=== PATIENT | female | born 1960 | race Caucasian/White ===

== ENCOUNTER 2017-08-09 21:21 | Inpatient (IN) | payer OTHER ==
[~2017-08-09] VITALS: Ht 170.2 cm; Wt 71.2 kg
[2017-08-09 21:31] VITALS: BP 123/71; PULSE 94; RESP 16; TEMP 100.5; O2SAT 97
[2017-08-09 22:19] LABS: BACTERIA, URINE OCC /hpf; BILIRUBIN, URINE NEG (NEG); BLOOD, URINE LARGE (NEG); GLUCOSE,URINE NEG (NEG); KETONE, URINE NEG (NEG); NITRITE,URINE NEG (NEG); PH, URINE 7.5 (5.0-8.5); URINE LEUKOCYTE ESTERASE MOD (NEG)
[2017-08-09 22:22] LABS: URINE COLOR LIGHT-RED (YELLW/STRAW)
[2017-08-09] MEDS ORDERED: SODIUM CHLOR 0.9% 1000 ML INJ 800 ML IV ONE (22:32)
[2017-08-09] MEDS ORDERED: SODIUM CHLOR 0.9% 1000 ML INJ 1,000 ML IV ONE (22:32)
--- NOTE | 2017-08-09 22:39 | PD ---
HPI Chief Complaint: Flank/Kidney Pain Time Seen by Provider: 22:28 Travel History International Travel<30 days: No Contact w/Intl Traveler<30days: No Traveled to known affect area: No History of Present Illness HPI 57-year-old female here for evaluation of severe left flank pain, fever, dysuria , and hematuria. On 08/06/17 the patient underwent cystoscopy with lithotripsy and left ureteral stent placement for [address] Delgadillo. Patient reports having continuous pain since then. She was seen at [facility] the day after and was discharged home from the emergency department after being treated for her pain. She has not been on any antibiotics. Pain is severe, left-sided, sharp, radiates to her left lower abdomen. She has also had nausea and vomiting. Pain is constant, slightly worse with movements. She is unable to keep any of the medications that were prescribed to her for pain and nausea down as she vomits them up shortly after taking them. [facility] Social History Tobacco Use: Yes Allergies-Medications (Allergen,Severity, Reaction): Coded Allergies: No Known Allergies (Unverified , 08/09/17) Reported Meds & Prescriptions Reported Meds & Active Scripts Active Review of Systems Except as stated in HPI: all other systems reviewed are Neg Physical Exam Narrative GENERAL: Well-developed, well-nourished, no apparent distress. SKIN: Focused skin assessment warm/dry. No rash. HEAD: Atraumatic. Normocephalic. EYES: Pupils equal and round. No scleral icterus. No injection or drainage. ENT: No nasal bleeding or discharge. Mucous membranes pink and moist. NECK: Trachea midline. No JVD. CARDIOVASCULAR: Regular rate and rhythm. RESPIRATORY: No accessory muscle use. Clear to auscultation. Breath sounds equal bilaterally. GASTROINTESTINAL: Abdomen soft, nondistended. Mild left lower quadrant tenderness without peritoneal signs. Normal bowel sounds. No hernias. MUSCULOSKELETAL: No obvious deformities. No clubbing. No cyanosis. No edema. Moderate left CVA tenderness. No right CVA tenderness. NEUROLOGICAL: Awake and alert. No obvious cranial nerve deficits. Motor grossly within normal limits. Normal speech. PSYCHIATRIC: Appropriate mood and affect; insight and judgment normal. Data Data Last Documented VS Vital Signs Date Time Temp Pulse Resp B/P (MAP) Pulse Ox O2 Delivery O2 Flow Rate FiO2 08/09/17 21:31 100.5 94 16 123/71 (88) 97 Room Air Orders Orders Urinalysis - C+S If Indicated (08/09/17 21:45) Urine Culture (08/09/17 21:45) Sepsis Workup Initiated (08/09/17 ) Complete Blood Count With Diff (08/09/17 22:32) Comprehensive Metabolic Panel (08/09/17 22:32) Prothrombin Time / Inr (Pt) (08/09/17 22:32) Act Partial Throm Time (Ptt) (08/09/17 22:32) Lactic Acid Sepsis Protocol (08/09/17 22:32) Blood Culture (08/09/17 22:32) Ecg Monitoring (08/09/17 22:32) Iv Access Insert/Monitor (08/09/17 22:32) Oximetry (08/09/17 22:32) Ct Abd/Pel W/O Iv Contrast (08/09/17 22:32) Sodium Chlor 0.9% 1000 Ml Inj (Ns 1000 M (08/09/17 22:32) Sodium Chlor 0.9% 1000 Ml Inj (Ns 1000 M (08/09/17 22:32) Creatine Kinase (Cpk) (08/09/17 22:32) Morphine Inj (Morphine Inj) (08/09/17 22:45) Ondansetron Inj (Zofran Inj) (08/09/17 22:45) Chest, Single Ap (08/09/17 ) Ceftriaxone Inj (Rocephin Inj) (08/09/17 22:45) Hydromorphone Pf Inj (Dilaudid Pf Inj) (08/09/17 23:45) Acetaminophen (Tylenol) (08/09/17 23:45) Sodium Chlor 0.9% 1000 Ml Inj (Ns 1000 M (08/10/17 00:00) Admit Order (Ed Use Only) (08/09/17 23:54) Labs Laboratory Tests Test 08/09/17 21:45 08/09/17 22:45 Urine Color LIGHT-RED Urine Turbidity CLEAR Urine pH 7.5 Urine Specific [employer] 1.005 Urine Protein 100 mg/dL Urine Glucose (UA) NEG mg/dL Urine Ketones NEG mg/dL Urine Occult Blood LARGE Urine Nitrite NEG Urine Bilirubin NEG Urine Urobilinogen LESS THAN 2.0 MG/DL Urine Leukocyte Esterase MOD Urine RBC /hpf Urine WBC 28 /hpf Urine Bacteria OCC /hpf Microscopic Urinalysis Comment CULTURE INDICATED White Blood Count 15.0 TH/MM3 Red Blood Count 3.69 MIL/MM3 Hemoglobin 12.2 GM/DL Hematocrit 35.6 % Mean Corpuscular Volume 96.5 FL Mean Corpuscular Hemoglobin 33.1 PG Mean Corpuscular Hemoglobin Concent 34.3 % Red Cell Distribution Width 12.4 % Platelet Count 255 TH/MM3 Mean Platelet Volume 8.1 FL Neutrophils (%) (Auto) 74.2 % Lymphocytes (%) (Auto) 14.4 % Monocytes (%) (Auto) 10.9 % Eosinophils (%) (Auto) 0.1 % Basophils (%) (Auto) 0.4 % Neutrophils # (Auto) 11.1 TH/MM3 Lymphocytes # (Auto) 2.2 TH/MM3 Monocytes # (Auto) 1.6 TH/MM3 Eosinophils # (Auto) 0.0 TH/MM3 Basophils # (Auto) 0.1 TH/MM3 CBC Comment DIFF FINAL Differential Comment Prothrombin Time 10.9 SEC Prothromb Time International Ratio 1.1 RATIO Activated Partial Thromboplast Time 28.4 SEC Blood Urea Nitrogen 9 MG/DL Creatinine 0.89 MG/DL Random Glucose 105 MG/DL Total Protein 7.2 GM/DL Albumin 3.5 GM/DL Calcium Level 9.0 MG/DL Alkaline Phosphatase 67 U/L Aspartate Amino Transf (AST/SGOT) 17 U/L Alanine Aminotransferase (ALT/SGPT) 21 U/L Total Bilirubin 0.6 MG/DL Sodium Level 137 MEQ/L Potassium Level 4.2 MEQ/L Chloride Level 103 MEQ/L Carbon Dioxide Level 28.5 MEQ/L Anion Gap 6 MEQ/L Estimat Glomerular Filtration Rate 65 ML/MIN Lactic Acid Level 0.8 mmol/L Total Creatine Kinase 58 U/L [facility] Medical Decision Making Medical Screen Exam Complete: Yes Emergency Medical Condition: Yes Medical Record Reviewed: Yes Differential Diagnosis UTI, pyelonephritis, hydronephrosis, infected ureteral stents, sepsis, renal insufficiency Narrative Course Initial vital signs show heart rate 94, blood pressure 123/71, pulse ox 97% on room air, oral temperature 100.5F. CBC: WBC 15, hemoglobin 12.2, hematocrit 35.6, platelets 255, neutrophils 74%. CMP is unremarkable. Lactic acid is 0.8. UA suggestive of UTI. CT abdomen pelvis: CONCLUSION: 1. Left-sided double-J ureteral stent in place. Moderate left hydronephrosis. 4 mm calculus in the mid left ureter. Prominent left-sided perinephric stranding. Small amount of gas in the left ureter gallbladder, and collecting system may be related to recent procedure. 2. Nonobstructing right renal calculus. 3. 6 cm complex cystic right adnexal mass. Patient was made aware of all findings. She was given morphine and continues to complain of pain. She is diaphoretic. She likely has pyelonephritis or an infected ureteral stent. She was given IV Rocephin as well as IV fluids. She was made aware of all findings and will be admitted for further treatment and evaluation. Case discussed with hospitalist Dr. Hartmann who will admit the patient to her service. Diagnosis Primary Impression: Pyelonephritis Additional Impression: Adnexal cyst Admitting Information Admitting Physician Requests: Admit Pastor Galeana MD Aug 09, 2017 22:38
[2017-08-09] MEDS ORDERED: ONDANSETRON HCL 4 MG/2 ML VIAL IV PUSH ONE (22:45)
[2017-08-09] MEDS ORDERED: cefTRIAXone INJ 1,000 MG in SODIUM CHLORIDE 0.9% INJ 100 ML IV ONE (22:45)
[2017-08-09] MEDS ORDERED: MORPHINE SULFATE 2 MG/ML SYRINGE IV PUSH ONE (22:45)
[2017-08-09 23:03] LABS: AUTOMATED NEUTROPHIL # 11.1 TH/MM3 (1.8-7.7); BASOPHIL # 0.1 TH/MM3 (0-0.2); BASOPHIL % 0.4 % (0.0-2.0); EOSINOPHIL % 0.1 % (0.0-4.0); HEMATOCRIT 35.6 % (35.0-46.0); HEMOGLOBIN 12.2 GM/DL (11.6-15.3); LYMPH % 14.4 % (9.0-44.0); LYMPHOCYTE # 2.2 TH/MM3 (1.0-4.8); MEAN CELL VOLUME 96.5 FL (80.0-100.0); MEAN CORPUSCULAR HEMOGLOBIN 33.1 PG (27.0-34.0); MEAN CORPUSCULAR HGB CONC 34.3 % (32.0-36.0); MEAN PLATELET VOLUME 8.1 FL (7.0-11.0); MONO % 10.9 % (0.0-8.0); MONOCYTE # 1.6 TH/MM3 (0-0.9); NEUT % 74.2 % (16.0-70.0); PLATELET COUNT 255 TH/MM3 (150-450); RED BLOOD COUNT 3.69 MIL/MM3 (4.00-5.30); RED CELL DISTRIBUTION WIDTH 12.4 % (11.6-17.2)
--- NOTE | 2017-08-09 23:09 | RADRPT ---
EXAM DATE/TIME: 08/09/2017 22:44 [facility] COMPARISON: No previous studies available for comparison. INDICATIONS : Chest pain and shortness of breath. MEDICAL HISTORY : None. SURGICAL HISTORY : None. ENCOUNTER: Initial ACUITY: 3 days PAIN SCORE: 4/10 LOCATION: Bilateral chest FINDINGS: A single view of the chest demonstrates the lungs to be symmetrically aerated without evidence of mas s, infiltrate or effusion. The cardiomediastinal contours are unremarkable. Osseous structures are intact. CONCLUSION: No acute disease. Reynaldo Herrera MD FACR on August 09, 2017 at 23:06 Board Certified Radiologist. This report was verified electronically.
[2017-08-09 23:18] LABS: ALBUMIN 3.5 GM/DL (3.4-5.0); AST (GOT) 17 U/L (15-37); BICARBONATE 28.5 MEQ/L (21.0-32.0); BLOOD UREA NITROGEN 9 MG/DL (7-18); CHLORIDE 103 MEQ/L (98-107); CREATININE 0.89 MG/DL (0.50-1.00); GLOMERULAR FILTRATION RATE 65 ML/MIN (>89); GLUCOSE,RANDOM 105 MG/DL (74-106); SODIUM (NA) 137 MEQ/L (136-145)
[2017-08-09 23:21] LABS: ALKALINE PHOSPHATASE 67 U/L (45-117); ALT (GPT) 21 U/L (10-53); TOTAL BILIRUBIN ADULT 0.6 MG/DL (0.2-1.0); TOTAL PROTEIN 7.2 GM/DL (6.4-8.2)
--- NOTE | 2017-08-09 23:21 | RADRPT ---
EXAM DATE/TIME: 08/09/2017 23:00 This report includes an Addendum and supersedes previous reports for this exam. [facility] COMPARISON: No previous studies available for comparison. INDICATIONS : Left flank pain. Status post renal stent 3 days ago. ORAL CONTRAST: No oral contrast ingested. RADIATION DOSE: 8.34 CTDIvol (mGy) MEDICAL HISTORY : Cardiovascular disease. Renal calculi. Diabetes mellitus type 2.Diverticulitis. SURGICAL HISTORY : Renal stent. ENCOUNTER: Initial ACUITY: 3 days PAIN SCALE: 8/10 LOCATION: Left flank TECHNIQUE: Volumetric scanning of the abdomen and pelvis was performed. Using automated exposure control and ad justment of the mA and/or kV according to patient size, radiation dose was kept as low as reasonably achievable to obtain optimal diagnostic quality images. DICOM format image data is available electro nically for review and comparison. FINDINGS: LOWER LUNGS: Patchy bilateral lower lobe atelectasis left greater than right. Trace bilateral pleural effusions. LIVER: Homogeneous density without lesion. There is no dilation of the biliary tree. No calcified gallston es. SPLEEN: Normal size without lesion. PANCREAS: Within normal limits. KIDNEYS: Double-J ureteral stent is in place on the left. Moderate left hydronephrosis. Small amount of gas is seen within the proximal left ureter and proximal left renal collecting system. 4 x 2 mm calculus is seen in the mid left ureter at the level of L4-5. Prominent left-sided perinephric stranding. 9 mm x 5 mm calculus in the right midpole. No evidence of hydronephrosis on the right. No ureteral calculi seen on the right. ADRENAL GLANDS: Within normal limits. VASCULAR: There is no aortic aneurysm. BOWEL/MESENTERY: No evidence of bowel dilatation. Trace free fluid in the pelvis. No free air. Appendix not identified . ABDOMINAL WALL: Within normal limits. RETROPERITONEUM: There is no lymphadenopathy. BLADDER: Small amount of gas in the bladder lumen. REPRODUCTIVE: Complex cystic mass in the right adnexa measuring 6.7 x 3.6 cm. INGUINAL: There is no lymphadenopathy or hernia. MUSCULOSKELETAL: Degenerative findings lower lumbar spine facet joints. CONCLUSION: 1. Left-sided double-J ureteral stent in place. Moderate left hydronephrosis. 4 mm calculus in the mi d left ureter. Prominent left-sided perinephric stranding. Small amount of gas in the left ureter gal lbladder, and collecting system may be related to recent procedure. 2. Nonobstructing right renal calculus. 3. 6 cm complex cystic right adnexal mass. Aj Gamble MD on August 09, 2017 at 23:12 Board Certified Radiologist. This report was verified electronically. ADDENDUM: The left ureteral calculi represent fragments following intervention which are passing through ureter . Nirmal Membreno MD on August 10, 2017 at 13:21 Board Certified Radiologist. This report was verified electronically.
[2017-08-09 23:39] LABS: INTERNATIONAL NORMALIZED RATIO 1.1 RATIO; PROTHROMBIN TIME - PATIENT 10.9 SEC (9.8-11.6)
[2017-08-09] MEDS ORDERED: ACETAMINOPHEN 325 MG TAB PO ONE (23:45)
[2017-08-09] MEDS ORDERED: HYDROmorphone HCL PF 2 MG/ML VIAL IV PUSH ONE (23:45)
[2017-08-10] MEDS ORDERED: MORPHINE SULFATE 2 MG/ML SYRINGE IV PUSH PRN
[2017-08-10] MEDS ORDERED: MAGNESIUM HYDROXIDE SUSP 30 ML CUP PO PRN
[2017-08-10] MEDS ORDERED: SODIUM CHLOR 0.9% 1000 ML INJ 1,000 ML IV ONE
[2017-08-10] MEDS ORDERED: LACTULOSE SYRUP 20 GM/30 ML CUP PO PRN
[2017-08-10] MEDS ORDERED: SODIUM CHLORIDE 0.9% FLUSH 10 ML FLUSH IV FLUSH PRN
[2017-08-10] MEDS ORDERED: ACETAMINOPHEN 325 MG TAB PO PRN
[2017-08-10] MEDS ORDERED: ACETAMINOPHEN/HYDROcodone 325 MG/5 MG TAB PO PRN
[2017-08-10] MEDS ORDERED: SENNOSIDES 8.6 MG TAB PO PRN
[2017-08-10] MEDS ORDERED: BISACODYL 10 MG SUPP RECTAL PRN
[2017-08-10 00:57] VITALS: BP 126/61; PULSE 102; RESP 16; O2SAT 92
[2017-08-10] MEDS ORDERED: ALPR.5 PO (00:57)
[2017-08-10] MEDS ORDERED: PRAV40TA2 PO (00:57)
[2017-08-10 01:26] VITALS: BP 132/61; PULSE 100; RESP 17; TEMP 98.1; O2SAT 93
--- NOTE | 2017-08-10 01:54 | HHI.HP ---
[facility] No Morataya DO Admission Diagnosis Pyelonephritis, intractable flank pain Diagnoses: (1) Sepsis Diagnosis: Principal (2) UTI (urinary tract infection) Diagnosis: Principal (3) Hydronephrosis Diagnosis: Principal (4) Flank pain Diagnosis: Principal Travel History International Travel<30 Days: No Contact w/Intl Traveler <30 Da: No Traveled to Known Affected Are: No History of Present Illness This is a 57-year-old female with a PMH of Kidney Stones and Tobacco Abuse who presented to the ER with complaints of severe left-sided flank pain in addition to fever and hematuria. States symptoms have been ongoing for the last 2 days. Underwent Cystoscopy w/ Lithotripsy and Stent Placement for [address] Delgadillo on 08/06/17. States pain has been getting progressively worse. Constant, sharp, severe, 10/10, non-radiating, associated w/ nausea and vomiting. On arrival, BP 123/71, HR 94, O2 sat 97% on RA, Temp 100.5. WBC 15. Chemistry unremarkable except for GFR 65. INR 1.1. UA with significant hematuria and bacteriuria. CXR no acute findings. CT Abdomen/Pelvis with left- sided double-J ureteral stent in place, moderate left hydronephrosis, 4 mm calculus mid left ureter, prominent left-sided perinephric stranding, nonobstructing right renal calculus. S/p Rocephin and Blood Cultures in ER. Review of Systems Except as stated in HPI: all other systems reviewed are Neg ROS: 14 point review of systems otherwise negative. Past Family Social History Past Medical History PMH: Kidney Stones and Tobacco Abuse Past Surgical History PAST SURGICAL HISTORY: Lithotripsy/Ureteral Stent Allergies: Coded Allergies: No Known Allergies (Unverified , 08/09/17) Family History PAST FAMILY HISTORY: Reviewed. No h/o DM or CAD Social History PAST SOCIAL HISTORY: Negative for alcohol, tobacco or drugs. Physical Exam Vital Signs Vital Signs Date Time Temp Pulse Resp B/P (MAP) Pulse Ox O2 Delivery O2 Flow Rate FiO2 08/10/17 01:26 98.1 100 17 132/61 (84) 93 08/10/17 00:57 102 16 126/61 (82) 92 Room Air 08/09/17 21:31 100.5 94 16 123/71 (88) 97 Room Air Physical Exam PE: GENERAL: Very pleasant middle-aged white female in no acute distress. HEENT: PERRLA, EOMI. No scleral icterus or conjunctival pallor. No lid lag or facial droop. CARDIOVASCULAR: Regular rate and rhythm. No obvious murmurs to auscultation. No chest tenderness to palpation. RESPIRATORY: No obvious rhonchi or wheezing. Clear to auscultation. Breath sounds equal bilaterally. GASTROINTESTINAL: Abdomen soft, left flank tenderness to palpation, nondistended. BS normal. MUSCULOSKELETAL: Extremities without clubbing, cyanosis, or edema. No obvious deformities. NEUROLOGICAL: Awake, alert and oriented x4. No focal neurologic deficits. Moving both upper and lower extremities spontaneously. Laboratory Laboratory Tests Test 08/09/17 21:45 08/09/17 22:45 Urine Color LIGHT-RED Urine Turbidity CLEAR Urine pH 7.5 Urine Specific [employer] 1.005 Urine Protein 100 Urine Glucose (UA) NEG Urine Ketones NEG Urine Occult Blood LARGE Urine Nitrite NEG Urine Bilirubin NEG Urine Urobilinogen LESS THAN 2.0 Urine Leukocyte Esterase MOD Urine RBC Urine WBC 28 Urine Bacteria OCC Microscopic Urinalysis Comment CULTURE INDICATED White Blood Count 15.0 Red Blood Count 3.69 Hemoglobin 12.2 Hematocrit 35.6 Mean Corpuscular Volume 96.5 Mean Corpuscular Hemoglobin 33.1 Mean Corpuscular Hemoglobin Concent 34.3 Red Cell Distribution Width 12.4 Platelet Count 255 Mean Platelet Volume 8.1 Neutrophils (%) (Auto) 74.2 Lymphocytes (%) (Auto) 14.4 Monocytes (%) (Auto) 10.9 Eosinophils (%) (Auto) 0.1 Basophils (%) (Auto) 0.4 Neutrophils # (Auto) 11.1 Lymphocytes # (Auto) 2.2 Monocytes # (Auto) 1.6 Eosinophils # (Auto) 0.0 Basophils # (Auto) 0.1 CBC Comment DIFF FINAL Differential Comment Prothrombin Time 10.9 Prothromb Time International Ratio 1.1 Activated Partial Thromboplast Time 28.4 Blood Urea Nitrogen 9 Creatinine 0.89 Random Glucose 105 Total Protein 7.2 Albumin 3.5 Calcium Level 9.0 Alkaline Phosphatase 67 Aspartate Amino Transf (AST/SGOT) 17 Alanine Aminotransferase (ALT/SGPT) 21 Total Bilirubin 0.6 Sodium Level 137 Potassium Level 4.2 Chloride Level 103 Carbon Dioxide Level 28.5 Anion Gap 6 Estimat Glomerular Filtration Rate 65 Lactic Acid Level 0.8 Total Creatine Kinase 58 Date/Time Source Procedure Growth Status 08/09/17 22:45 Blood Peripheral Aerobic Blood Culture Pending Received 08/09/17 22:45 Blood Peripheral Anaerobic Blood Culture Pending Received 08/09/17 21:45 Urine Clean Catch Urine Culture Pending Received Result Diagram: 08/09/17224408/09/172244 Caprini VTE Risk Assessment Caprini VTE Risk Assessment: No/Low Risk (score <= 1) Caprini Risk Assessment Model Point Value = 1 Point Value = 2 Point Value = 3 Point Value = 5 Age 41-60 Minor surgery BMI > 25 kg/m2 Swollen legs Varicose veins or History of unexplained or recurrent spontaneous Oral contraceptives or hormone replacement Sepsis (< 1 month) Serious lung disease, including pneumonia (< 1 month) Abnormal pulmonary function Acute myocardial infarction Congestive heart failure (< 1 month) History of inflammatory bowel disease Medical patient at bed rest Age 61-74 Arthroscopic surgery Major open surgery (> 45 min) Laparoscopic surgery (> 45 min) Malignancy Confined to bed (> 72 hours) Immobilizing plaster cast Central venous access Age >= 75 History of VTE Family history of VTE Factor V Leiden Prothrombin [id number] Lupus anticoagulant Anticardiolipin antibodies Elevated serum homocysteine Heparin-induced thrombocytopenia Other congenital or acquired thrombophilia Stroke (< 1 month) Elective arthroplasty Hip, pelvis, or leg fracture Acute spinal cord injury (< 1 month) Prophylaxis Regimen Total Risk Factor Score Risk Level Prophylaxis Regimen 0-1 Low Early ambulation 2 Moderate Order ONE of the following: *Sequential Compression Device (SCD) *Heparin 5000 units SQ BID 3-4 Higher Order ONE of the following medications: *Heparin 5000 units SQ TID *Enoxaparin/Lovenox 40 mg SQ daily (WT < 150 kg, CrCl > 30 mL/min) *Enoxaparin/Lovenox 30 mg SQ daily (WT < 150 kg, CrCl > 10-29 mL/min) *Enoxaparin/Lovenox 30 mg SQ BID (WT < 150 kg, CrCl > 30 mL/min) AND/OR *Sequential Compression Device (SCD) 5 or more Highest Order ONE of the following medications: *Heparin 5000 units SQ TID (Preferred with Epidurals) *Enoxaparin/Lovenox 40 mg SQ daily (WT < 150 kg, CrCl > 30 mL/min) *Enoxaparin/Lovenox 30 mg SQ daily (WT < 150 kg, CrCl > 10-29 mL/min) *Enoxaparin/Lovenox 30 mg SQ BID (WT < 150 kg, CrCl > 30 mL/min) AND *Sequential Compression Device (SCD) Assessment and Plan Problem List: (1) Sepsis ICD Code: A41.9 - Sepsis, unspecified organism (2) UTI (urinary tract infection) ICD Code: N39.0 - Urinary tract infection, site not specified (3) Hydronephrosis ICD Code: N13.30 - Unspecified hydronephrosis (4) Flank pain ICD Code: R10.9 - Unspecified abdominal pain Assessment and Plan A/P: 1. Sepsis: Temp 100.5, HR 94, WBC 15, Source-UTI/Pyelonephritis. S/p Blood/ Urine Cultures, Rocephin IV in ER. Follow up cultures, continue IV Abx, IVF for hydration. 2. UTI: Complicated. U/a w/ significant hematuria/bacteriuria, CT Abd/Pelvis w/ perinephric stranding, continue w/ IV Abx, IVF. 3. Hydronephrosis: S/p Lithotripsy w/ Ureteral Stent by Dr. Delgadillo 08/06/17 , CT Abd/Pelvis w/ stent in place, moderate left hydronephrosis, 4mm calculus mid left ureter. Will consult Urology for further evaluation. 4. Flank Pain: Intractable. Multiple doses of Morphine/Zofran w/ minimal improvement, continue w/ analgesics/antiemetics as needed. 5. DVT Prophylaxis: SCD/Teds. 6. Social work for d/c planning as needed. 7. Case discussed w/ ER physician at length, labs/records/imaging reviewed by me. Physician Certification 2 Midnight Certification Type: Admission for Inpatient Services Order for Inpatient Services The services are ordered in accordance with Medicare regulations or non- Medicare payer requirements, as applicable. In the case of services not specified as inpatient-only, they are appropriately provided as inpatient services in accordance with the 2-midnight benchmark. Estimated LOS (days): 2 days is the estimated time the patient will need to remain in the hospital, assuming treatment plan goals are met and no additional complications. Post-Hospital Plan: Not yet determined Glendy Hartmann MD Aug 10, 2017 01:54
[2017-08-10] MEDS: SODIUM CHLOR 0.9% 1000 ML INJ 1,000 ML IV SCH ×3 (01:57→20:47)
[2017-08-10] MEDS: ONDANSETRON HCL 4 MG/2 ML VIAL IVP PRN ×2 (03:54→18:22)
[2017-08-10] MEDS: HYDROmorphone HCL PF 2 MG/ML VIAL IV PRN ×2 (06:32→18:21)
[2017-08-10 07:01] LABS: AUTOMATED NEUTROPHIL # 10.5 TH/MM3 (1.8-7.7); BASOPHIL % 0.2 % (0.0-2.0); EOSINOPHIL % 0.1 % (0.0-4.0); HEMOGLOBIN 10.9 GM/DL (11.6-15.3); LYMPH % 14.6 % (9.0-44.0); LYMPHOCYTE # 2.1 TH/MM3 (1.0-4.8); MEAN CELL VOLUME 98.6 FL (80.0-100.0); MEAN CORPUSCULAR HEMOGLOBIN 33.5 PG (27.0-34.0); MEAN PLATELET VOLUME 8.3 FL (7.0-11.0); MONO % 11.2 % (0.0-8.0); MONOCYTE # 1.6 TH/MM3 (0-0.9); NEUT % 73.9 % (16.0-70.0); PLATELET COUNT 231 TH/MM3 (150-450); RED BLOOD COUNT 3.24 MIL/MM3 (4.00-5.30); RED CELL DISTRIBUTION WIDTH 12.6 % (11.6-17.2); WHITE BLOOD COUNT 14.1 TH/MM3 (4.0-11.0)
[2017-08-10 07:11] LABS: ALBUMIN 2.7 GM/DL (3.4-5.0); ALKALINE PHOSPHATASE 61 U/L (45-117); ALT (GPT) 17 U/L (10-53); AST (GOT) 12 U/L (15-37); BICARBONATE 25.9 MEQ/L (21.0-32.0); BLOOD UREA NITROGEN 7 MG/DL (7-18); CALCIUM 7.8 MG/DL (8.5-10.1); CHLORIDE 109 MEQ/L (98-107); CREATININE 0.72 MG/DL (0.50-1.00); GLOMERULAR FILTRATION RATE 83 ML/MIN (>89); GLUCOSE,RANDOM 93 MG/DL (74-106); SODIUM (NA) 142 MEQ/L (136-145); TOTAL BILIRUBIN ADULT 0.4 MG/DL (0.2-1.0); TOTAL PROTEIN 6.4 GM/DL (6.4-8.2)
[2017-08-10 08:00] VITALS: BP 110/61; PULSE 85; RESP 16; TEMP 101.2; O2SAT 93
[2017-08-10] MEDS: SODIUM CHLORIDE 0.9% FLUSH 10 ML FLUSH IV FLUSH SCH ×2 (08:11→20:47)
[2017-08-10] MEDS: DOCUSATE SODIUM 50 MG/SENNA 8.6 MG TAB PO SCH ×2 (08:11→20:47)
--- NOTE | 2017-08-10 09:27 | HHI.PR ---
Subjective Remarks in no acute distress. still with left flank pain, nausea and vomiting. T max 101.2. Objective Vitals Vital Signs Date Time Temp Pulse Resp B/P (MAP) Pulse Ox O2 Delivery O2 Flow Rate FiO2 08/10/17 08:00 101.2 85 16 110/61 (77) 93 08/10/17 01:26 98.1 100 17 132/61 (84) 93 08/10/17 00:57 102 16 126/61 (82) 92 Room Air 08/09/17 21:31 100.5 94 16 123/71 (88) 97 Room Air I/O 08/09/17 08/09/17 08/09/17 08/10/17 08/10/17 08/10/17 06:59 14:59 22:59 06:59 14:59 22:59 Intake Total 2100 ml Balance 2100 ml Intake Oral 0 ml IV Total 2100 ml # Voids 2 # Bowel Movements 0 Result Diagram: 08/10/17 0602 08/10/17 0602 Imaging Last Impressions Abdomen/Pelvis CT 08/09/17 2232 Signed Impressions: Service Date/Time: Wednesday, August 09, 2017 23:00 - CONCLUSION: 1. Left-sided double-J ureteral stent in place. Moderate left hydronephrosis. 4 mm calculus in the mid left ureter. Prominent left-sided perinephric stranding. Small amount of gas in the left ureter gallbladder, and collecting system may be related to recent procedure. 2. Nonobstructing right renal calculus. 3. 6 cm complex cystic right adnexal mass. Aj Gamble MD Chest X-Ray 08/09/17 0000 Signed Impressions: Service Date/Time: Wednesday, August 09, 2017 22:44 - CONCLUSION: No acute disease. Reynaldo Herrera MD FACR Objective Remarks GENERAL: This is a well-nourished, well-developed patient, in no apparent distress. CARDIOVASCULAR: Regular rate and regular rhythm without murmurs, gallops, or rubs. RESPIRATORY: Clear to auscultation. Breath sounds equal bilaterally. No wheezes , rales, or rhonchi. GASTROINTESTINAL: Abdomen soft, non-tender, nondistended. Normal, active bowel sounds MUSCULOSKELETAL: Extremities without clubbing, cyanosis, or edema. NEURO: Alert & Oriented x4 to person, place, time, situation. Moves all ext x4 Medications and IVs Inpatient Medications Acetaminophen (Tylenol) 650 mg Q6H PRN PO FEVER/PAIN SCALE 1 TO 2 Last administered on 08/10/17at 08:17; Start 08/10/17 at 00:00 Acetaminophen/ Hydrocodone Bitart (Winifrede 5-325 Mg) 1 tab Q4H PRN PO PAIN SCALE 3 TO 5; Start 08/10/17 at 00:00 Bisacodyl (Dulcolax Supp) 10 mg DAILY PRN RECTAL SEVERE CONSITIPATION; Start at 00:00 Ceftriaxone Sodium 1000 mg/ Sodium Chloride 100 ml @ 200 mls/hr Q24H IV ; Start 08/10/17 at 23:00 Hydromorphone HCl (Dilaudid Pf Inj) 1 mg Q4H PRN IV PAIN GREATER THAN 4 Last administered on 08/10/17at 06:32; Start 08/10/17 at 04:30 Lactulose (Lactulose Liq) 30 ml DAILY PRN PO SEVERE CONSITIPATION; Start at 00:00 Magnesium Hydroxide (Milk Of Magnesia Liq) 30 ml Q12H PRN PO Mild constipation ; Start 08/10/17 at 00:00 Morphine Sulfate (Morphine Inj) 2 mg Q3H PRN IV PUSH Pain 6-10 Last administered on 08/10/17at 03:52; Start 08/10/17 at 00:00; Stop 08/10/17 at 04:16; Status DC Ondansetron HCl (Zofran Inj) 4 mg Q6H PRN IVP NAUSEA OR VOMITING Last administered on 08/10/17at 03:54; Start 08/10/17 at 00:00 Senna/Docusate Sodium (Dinora-Colace) 1 tab BID PO ; Start 08/10/17 at 09:00 Sennosides (Senokot) 17.2 mg Q12H PRN PO Moderate constipation; Start 08/10/17 at 00:00 Sodium Chloride (NS Flush) 2 ml BID IV FLUSH ; Start 08/10/17 at 09:00 A/P Problem List: (1) Sepsis ICD Code: A41.9 - Sepsis, unspecified organism (2) UTI (urinary tract infection) ICD Code: N39.0 - Urinary tract infection, site not specified (3) Hydronephrosis ICD Code: N13.30 - Unspecified hydronephrosis (4) Flank pain ICD Code: R10.9 - Unspecified abdominal pain Assessment and Plan A/P 1. Sepsis: Temp 100.5, HR 94, WBC 15, Source-UTI/Pyelonephritis. S/p Blood/ Urine Cultures, Rocephin IV in ER. Follow up cultures, continue IV Abx, IVF for hydration. 2. UTI: Complicated. U/a w/ significant hematuria/bacteriuria, CT Abd/Pelvis w/ perinephric stranding, continue w/ IV Abx, IVF. follow the cultures. 3. Hydronephrosis: S/p Lithotripsy w/ Ureteral Stent by Dr. Delgadillo 08/06/17 , CT Abd/Pelvis w/ stent in place, moderate left hydronephrosis, 4mm calculus mid left ureter. Urology consulted. 4. Flank Pain: Intractable. Multiple doses of Morphine/Zofran w/ minimal improvement, continue w/ analgesics/antiemetics as needed. Sivan Bush MD Aug 10, 2017 09:27
[2017-08-10 12:00] VITALS: BP 112/66; PULSE 85; RESP 18; TEMP 101.1; O2SAT 95
[2017-08-10 16:00] VITALS: BP 118/62; PULSE 78; RESP 20; TEMP 99.4; O2SAT 96
[2017-08-10 20:00] VITALS: BP 124/68; PULSE 106; RESP 17; TEMP 99.4; O2SAT 96
[2017-08-10] MEDS: cefTRIAXone INJ 1,000 MG in SODIUM CHLORIDE 0.9% INJ 100 ML IV SCH (23:09)
[2017-08-11] VITALS: BP 136/70; PULSE 76; RESP 17; TEMP 98.4; O2SAT 97
[2017-08-11] MEDS: ONDANSETRON HCL 4 MG/2 ML VIAL IVP PRN (00:34)
[2017-08-11] MEDS: HYDROmorphone HCL PF 2 MG/ML VIAL IV PRN (00:37)
[2017-08-11] MEDS: ALPRAZolam 0.5 MG TAB PO PRN ×2 (02:14→18:05)
[2017-08-11 05:05] LABS: AUTOMATED NEUTROPHIL # 10.3 TH/MM3 (1.8-7.7); BASOPHIL # 0.1 TH/MM3 (0-0.2); BASOPHIL % 0.6 % (0.0-2.0); EOSINOPHIL # 0.3 TH/MM3 (0-0.4); EOSINOPHIL % 1.7 % (0.0-4.0); HEMATOCRIT 29.4 % (35.0-46.0); HEMOGLOBIN 10.1 GM/DL (11.6-15.3); LYMPH % 21.3 % (9.0-44.0); LYMPHOCYTE # 3.3 TH/MM3 (1.0-4.8); MEAN CORPUSCULAR HEMOGLOBIN 33.5 PG (27.0-34.0); MEAN CORPUSCULAR HGB CONC 34.2 % (32.0-36.0); MEAN PLATELET VOLUME 9.9 FL (7.0-11.0); MONO % 10.2 % (0.0-8.0); MONOCYTE # 1.6 TH/MM3 (0-0.9); NEUT % 66.2 % (16.0-70.0); PLATELET COUNT 235 TH/MM3 (150-450); RED CELL DISTRIBUTION WIDTH 12.2 % (11.6-17.2); WHITE BLOOD COUNT 15.5 TH/MM3 (4.0-11.0)
[2017-08-11] MEDS: SODIUM CHLOR 0.9% 1000 ML INJ 1,000 ML IV SCH ×2 (06:00→15:22)
[2017-08-11 07:40] LABS: TOXIC VACUOLATION PRESENT (NONE SEEN)
[2017-08-11 08:00] VITALS: BP 136/70; PULSE 76; RESP 18; TEMP 98.7; O2SAT 96
[2017-08-11] MEDS: SODIUM CHLORIDE 0.9% FLUSH 10 ML FLUSH IV FLUSH SCH ×2 (08:26→20:38)
[2017-08-11] MEDS: DOCUSATE SODIUM 50 MG/SENNA 8.6 MG TAB PO SCH ×2 (08:28→20:38)
[2017-08-11] MEDS: PRAVASTATIN SOD 40 MG TAB PO SCH (08:28)
--- NOTE | 2017-08-11 10:31 | HHI.PR ---
Subjective Remarks in no acute distress. pain seems to be better. still has some hematuria. Tmax 101.1. d/w the RN. Objective Vitals Vital Signs Date Time Temp Pulse Resp B/P (MAP) Pulse Ox O2 Delivery O2 Flow Rate FiO2 08/11/17 08:00 98.7 76 18 136/70 (92) 96 08/11/17 00:00 98.4 76 17 136/70 (92) 97 08/10/17 20:00 99.4 106 17 124/68 (86) 96 08/10/17 16:00 99.4 78 20 118/62 (80) 96 08/10/17 12:00 101.1 85 18 112/66 (81) 95 I/O 08/10/17 08/10/17 08/10/17 08/11/17 08/11/17 08/11/17 07:00 15:00 23:00 07:00 15:00 23:00 Intake Total 2100 ml 2800 ml 340 ml Output Total 600 ml 400 ml 600 ml 800 ml Balance 2100 ml -600 ml 2400 ml -260 ml -800 ml Intake Oral 0 ml 1800 ml 240 ml IV Total 2100 ml 1000 ml 100 ml Output Urine Total 600 ml 400 ml 600 ml 800 ml # Voids 2 # Bowel Movements 0 0 Result Diagram: 08/11/17 0419 08/10/17 0602 Imaging Last Impressions Abdomen/Pelvis CT 08/09/172 Signed Impressions: Service Date/Time: Wednesday, August 09, 2017 23:00 - CONCLUSION: 1. Left-sided double-J ureteral stent in place. Moderate left hydronephrosis. 4 mm calculus in the mid left ureter. Prominent left-sided perinephric stranding. Small amount of gas in the left ureter gallbladder, and collecting system may be related to recent procedure. 2. Nonobstructing right renal calculus. 3. 6 cm complex cystic right adnexal mass. Aj Gamble MD ADDENDUM: The left ureteral calculi represent fragments following intervention which are passing through ureter. Nirmal Membreno MD Chest X-Ray 08/09/17 0000 Signed Impressions: Service Date/Time: Wednesday, August 09, 2017 22:44 - CONCLUSION: No acute disease. Reynaldo Herrera MD FACR Objective Remarks GENERAL: This is a well-nourished, well-developed patient, in no apparent distress. CARDIOVASCULAR: Regular rate and regular rhythm without murmurs, gallops, or rubs. RESPIRATORY: Clear to auscultation. Breath sounds equal bilaterally. No wheezes , rales, or rhonchi. GASTROINTESTINAL: Abdomen soft, non-tender, nondistended. Normal, active bowel sounds MUSCULOSKELETAL: Extremities without clubbing, cyanosis, or edema. NEURO: Alert & Oriented x4 to person, place, time, situation. Moves all ext x4 Medications and IVs Inpatient Medications Acetaminophen (Tylenol) 650 mg Q6H PRN PO FEVER/PAIN SCALE 1 TO 2 Last administered on 08/10/17at 08:17; Start 08/10/17 at 00:00 Acetaminophen/ Hydrocodone Bitart ([place] 5-325 Mg) 1 tab Q4H PRN PO PAIN SCALE 3 TO 5; Start 08/10/17 at 00:00 Alprazolam (Xanax) 0.5 mg Q4H PRN PO ANXIETY Last administered on 08/11/17at 02: 14; Start 08/10/17 at 09:30 Bisacodyl (Dulcolax Supp) 10 mg DAILY PRN RECTAL SEVERE CONSITIPATION; Start at 00:00 Ceftriaxone Sodium 1000 mg/ Sodium Chloride 100 ml @ 200 mls/hr Q24H IV Last administered on 08/10/17at 23:09; Start 08/10/17 at 23:00 Hydromorphone HCl (Dilaudid Pf Inj) 1 mg Q4H PRN IV PAIN GREATER THAN 4 Last administered on 08/11/17at 00:37; Start 08/10/17 at 04:30 Lactulose (Lactulose Liq) 30 ml DAILY PRN PO SEVERE CONSITIPATION Last administered on 08/11/17 08:28; Start 08/10/17 at 00:00 Magnesium Hydroxide (Milk Of Magnesia Liq) 30 ml Q12H PRN PO Mild constipation ; Start 08/10/17 at 00:00 Morphine Sulfate (Morphine Inj) 2 mg Q3H PRN IV PUSH Pain 6-10 Last administered on 08/10/17at 03:52; Start 08/10/17 at 00:00; Stop 08/10/17 at 04:16; Status DC Ondansetron HCl (Zofran Inj) 4 mg Q6H PRN IVP NAUSEA OR VOMITING Last administered on 08/11/17at 00:34; Start 08/10/17 at 00:00 Pravastatin Sodium (Pravachol) 40 mg DAILY PO Last administered on 08/11/17at 08: 28; Start 08/11/17 at 09:00 Senna/Docusate Sodium (Dinora-Colace) 1 tab BID PO Last administered on 08/11/17at 08:28; Start 08/10/17 at 09:00 Sennosides (Senokot) 17.2 mg Q12H PRN PO Moderate constipation; Start 08/10/17 at 00:00 Sodium Chloride (NS Flush) 2 ml BID IV FLUSH ; Start 08/10/17 at 09:00 A/P Problem List: (1) Sepsis ICD Code: A41.9 - Sepsis, unspecified organism (2) UTI (urinary tract infection) ICD Code: N39.0 - Urinary tract infection, site not specified (3) Hydronephrosis ICD Code: N13.30 - Unspecified hydronephrosis (4) Flank pain ICD Code: R10.9 - Unspecified abdominal pain Assessment and Plan A/P 1. Sepsis: Source-UTI/Pyelonephritis. continue IV antibiotic. 2. UTI: Complicated. U/a w/ significant hematuria/bacteriuria, CT Abd/Pelvis w/ perinephric stranding, continue w/ IV Abx, IVF. blood and urine cultures negative so far. 3. Hydronephrosis: S/p Lithotripsy w/ Ureteral Stent by Dr. Delgadillo 08/06/17 , CT Abd/Pelvis w/ stent in place, moderate left hydronephrosis, 4mm calculus mid left ureter. Urology consulted. 4. Flank Pain: better today. continue w/ analgesics/antiemetics as needed. Discharge Planning possible dc home tomorrow if pain continues to improve, with no recurrent fever and cleared by urology. Sivan Bush MD Aug 11, 2017 10:31
[2017-08-11 12:00] VITALS: BP 126/72; PULSE 76; RESP 18; TEMP 99.2; O2SAT 95
[2017-08-11 16:00] VITALS: BP 131/67; PULSE 74; RESP 16; TEMP 99.5; O2SAT 96
[2017-08-11 20:00] VITALS: BP 126/65; PULSE 72; RESP 17; TEMP 99.7; O2SAT 96
[2017-08-11] MEDS: cefTRIAXone INJ 1,000 MG in SODIUM CHLORIDE 0.9% INJ 100 ML IV SCH (22:39)
[2017-08-12] VITALS: BP 128/64; PULSE 76; RESP 17; TEMP 98.7; O2SAT 97
[2017-08-12] MEDS: SODIUM CHLOR 0.9% 1000 ML INJ 1,000 ML IV SCH ×2 (01:09→09:12)
[2017-08-12 08:00] VITALS: BP 133/66; PULSE 66; RESP 18; TEMP 99; O2SAT 95
[2017-08-12] MEDS: DOCUSATE SODIUM 50 MG/SENNA 8.6 MG TAB PO SCH (09:00)
[2017-08-12] MEDS: SODIUM CHLORIDE 0.9% FLUSH 10 ML FLUSH IV FLUSH SCH (09:00)
[2017-08-12] MEDS: PRAVASTATIN SOD 40 MG TAB PO SCH (09:11)
[2017-08-12] MEDS ORDERED: ACETAMINOPHEN/HYDROcodone 325 MG/5 MG TAB PO PRN (09:30)
--- NOTE | 2017-08-12 09:41 | HHI.PR ---
Subjective Remarks looks and feels much more comfortable today. pain is much better. no fever spike. no nausea or vomiting. she says that she's ready to go home today. Objective Vitals Vital Signs Date Time Temp Pulse Resp B/P (MAP) Pulse Ox O2 Delivery O2 Flow Rate FiO2 08/12/17 08:00 99.0 66 18 133/66 (88) 95 08/12/17 00:00 98.7 76 17 128/64 (85) 97 08/11/17 20:00 99.7 72 17 126/65 (85) 96 08/11/17 16:00 99.5 74 16 131/67 (88) 96 08/11/17 12:00 99.2 76 18 126/72 (90) 95 I/O 08/11/17 08/11/17 08/11/17 08/12/17 08/12/17 08/12/17 07:00 15:00 23:00 07:00 15:00 23:00 Intake Total 340 ml 1340 ml Output Total 600 ml 800 ml Balance -260 ml -800 ml 1340 ml Intake Oral 240 ml 240 ml IV Total 100 ml 1100 ml Output Urine Total 600 ml 800 ml # Voids 2 Result Diagram: 08/11/17 0419 08/10/17 0602 Imaging Last Impressions Abdomen/Pelvis CT 08/09/172 Signed Impressions: Service Date/Time: Wednesday, August 09, 2017 23:00 - CONCLUSION: 1. Left-sided double-J ureteral stent in place. Moderate left hydronephrosis. 4 mm calculus in the mid left ureter. Prominent left-sided perinephric stranding. Small amount of gas in the left ureter gallbladder, and collecting system may be related to recent procedure. 2. Nonobstructing right renal calculus. 3. 6 cm complex cystic right adnexal mass. Aj Gamble MD ADDENDUM: The left ureteral calculi represent fragments following intervention which are passing through ureter. Nirmal Membreno MD Chest X-Ray 08/09/17 0000 Signed Impressions: Service Date/Time: Wednesday, August 09, 2017 22:44 - CONCLUSION: No acute disease. Reynaldo Herrera MD FACR Objective Remarks GENERAL: This is a well-nourished, well-developed patient, in no apparent distress. CARDIOVASCULAR: Regular rate and regular rhythm without murmurs, gallops, or rubs. RESPIRATORY: Clear to auscultation. Breath sounds equal bilaterally. No wheezes , rales, or rhonchi. GASTROINTESTINAL: Abdomen soft, non-tender, nondistended. Normal, active bowel sounds MUSCULOSKELETAL: Extremities without clubbing, cyanosis, or edema. NEURO: Alert & Oriented x4 to person, place, time, situation. Moves all ext x4 Procedures none Medications and IVs Inpatient Medications Acetaminophen (Tylenol) 650 mg Q6H PRN PO FEVER/PAIN SCALE 1 TO 2 Last administered on 08/10/17 08:17; Start 08/10/17 at 00:00 Acetaminophen/ Hydrocodone Bitart ([place] 5-325 Mg) 1 tab Q4H PRN PO PAIN SCALE 3 TO 5; Start 08/10/17 at 00:00 Alprazolam (Xanax) 0.5 mg Q4H PRN PO ANXIETY Last administered on 08/11/17at 18: 05; Start 08/10/17 at 09:30 Bisacodyl (Dulcolax Supp) 10 mg DAILY PRN RECTAL SEVERE CONSITIPATION; Start at 00:00 Ceftriaxone Sodium 1000 mg/ Sodium Chloride 100 ml @ 200 mls/hr Q24H IV Last administered on 08/11/17 22:39; Start 08/10/17 at 23:00 Hydromorphone HCl (Dilaudid Pf Inj) 1 mg Q4H PRN IV PAIN GREATER THAN 4 Last administered on 08/11/17at 00:37; Start 08/10/17 at 04:30 Lactulose (Lactulose Liq) 30 ml DAILY PRN PO SEVERE CONSITIPATION Last administered on 08/11/17at 08:28; Start 08/10/17 at 00:00 Magnesium Hydroxide (Milk Of Magnesia Liq) 30 ml Q12H PRN PO Mild constipation ; Start 08/10/17 at 00:00 Morphine Sulfate (Morphine Inj) 2 mg Q3H PRN IV PUSH Pain 6-10 Last administered on 08/10/17at 03:52; Start 08/10/17 at 00:00; Stop 08/10/17 at 04:16; Status DC Ondansetron HCl (Zofran Inj) 4 mg Q6H PRN IVP NAUSEA OR VOMITING Last administered on 08/11/17at 00:34; Start 08/10/17 at 00:00 Pravastatin Sodium (Pravachol) 40 mg DAILY PO Last administered on 08/12/17at 09: 11; Start 08/11/17 at 09:00 Senna/Docusate Sodium (Dinora-Colace) 1 tab BID PO Last administered on 08/11/17at 08:28; Start 08/10/17 at 09:00 Sennosides (Senokot) 17.2 mg Q12H PRN PO Moderate constipation; Start 08/10/17 at 00:00 Sodium Chloride (NS Flush) 2 ml BID IV FLUSH ; Start 08/10/17 at 09:00 A/P Problem List: (1) Sepsis ICD Code: A41.9 - Sepsis, unspecified organism (2) UTI (urinary tract infection) ICD Code: N39.0 - Urinary tract infection, site not specified (3) Hydronephrosis ICD Code: N13.30 - Unspecified hydronephrosis (4) Flank pain ICD Code: R10.9 - Unspecified abdominal pain Assessment and Plan A/P 1. Sepsis: Source-UTI/Pyelonephritis. switch to po antibiotic. 2. UTI: Complicated. U/a w/ significant hematuria/bacteriuria, CT Abd/Pelvis w/ perinephric stranding- switch to po antibiotics. blood and urine cultures negative so far. 3. Hydronephrosis: S/p Lithotripsy w/ Ureteral Stent by Dr. Delgadillo 08/06/17 , CT Abd/Pelvis w/ stent in place, moderate left hydronephrosis, 4mm calculus mid left ureter. Urology consulted. 4. Flank Pain: better today. continue w/ analgesics/antiemetics as needed. 5.right adnexal mass- f/u as outpatient ( patient is aware) . Discharge Planning dc home today if cleared by Urology. see med list. f/u; pcp and urology. d/w the patient. Sivan Bush MD Aug 12, 2017 09:41
[2017-08-12] MEDS ORDERED: HYDR-3516 PO (09:42)
[2017-08-12] MEDS ORDERED: CIPR-9 PO (09:42)
--- NOTE | 2017-08-12 09:43 | HHI.DS ---
Discharge Summary Admission Date Aug 09, 2017 at 23:55 Discharge Date: Aug 12, 2017 Admitting Diagnosis Pyelonephritis, intractable flank pain (1) Sepsis ICD Code: A41.9 - Sepsis, unspecified organism Diagnosis: Principal (2) UTI (urinary tract infection) ICD Code: N39.0 - Urinary tract infection, site not specified Diagnosis: Principal (3) Hydronephrosis ICD Code: N13.30 - Unspecified hydronephrosis Diagnosis: Principal (4) Flank pain ICD Code: R10.9 - Unspecified abdominal pain Diagnosis: Principal Procedures none Brief History - From Admission This is a 57-year-old female with a PMH of Kidney Stones and Tobacco Abuse who presented to the ER with complaints of severe left-sided flank pain in addition to fever and hematuria. States symptoms have been ongoing for the last 2 days. Underwent Cystoscopy w/ Lithotripsy and Stent Placement for [address] Delgadillo on 08/06/17. States pain has been getting progressively worse. Constant, sharp, severe, 10/10, non-radiating, associated w/ nausea and vomiting. On arrival, BP 123/71, HR 94, O2 sat 97% on RA, Temp 100.5. WBC 15. Chemistry unremarkable except for GFR 65. INR 1.1. UA with significant hematuria and bacteriuria. CXR no acute findings. CT Abdomen/Pelvis with left- sided double-J ureteral stent in place, moderate left hydronephrosis, 4 mm calculus mid left ureter, prominent left-sided perinephric stranding, nonobstructing right renal calculus. S/p Rocephin and Blood Cultures in ER. CBC/BMP: 08/11/17 0419 08/10/17 0602 Significant Findings Laboratory Tests Test 08/09/17 21:45 08/09/17 22:45 08/10/17 06:02 08/11/17 04:19 Urine Color LIGHT-RED (YELLW/STRAW) Urine Protein 100 mg/dL (NEG-TRACE) Urine Occult Blood LARGE (NEG) Urine Leukocyte Esterase MOD (NEG) Urine WBC 28 /hpf (0-5) Urine Bacteria OCC /hpf (NONE) White Blood Count 15.0 TH/MM3 (4.0-11.0) 14.1 TH/MM3 (4.0-11.0) 15.5 TH/MM3 (4.0-11.0) Red Blood Count 3.69 MIL/MM3 (4.00-5.30) 3.24 MIL/MM3 (4.00-5.30) 3.00 MIL/MM3 (4.00-5.30) Neutrophils (%) (Auto) 74.2 % (16.0-70.0) 73.9 % (16.0-70.0) Monocytes (%) (Auto) 10.9 % (0.0-8.0) 11.2 % (0.0-8.0) 10.2 % (0.0-8.0) Neutrophils # (Auto) 11.1 TH/MM3 (1.8-7.7) 10.5 TH/MM3 (1.8-7.7) 10.3 TH/MM3 (1.8-7.7) Monocytes # (Auto) 1.6 TH/MM3 (0-0.9) 1.6 TH/MM3 (0-0.9) 1.6 TH/MM3 (0-0.9) Estimat Glomerular Filtration Rate 65 ML/MIN (>89) 83 ML/MIN (>89) Hemoglobin 10.9 GM/DL (11.6-15.3) 10.1 GM/DL (11.6-15.3) Hematocrit 32.0 % (35.0-46.0) 29.4 % (35.0-46.0) Albumin 2.7 GM/DL (3.4-5.0) Calcium Level 7.8 MG/DL (8.5-10.1) Aspartate Amino Transf (AST/SGOT) 12 U/L (15-37) Chloride Level 109 MEQ/L (98-107) Toxic Vacuolation PRESENT (NONE SEEN) Imaging Last Impressions Abdomen/Pelvis CT 08/09/172231 Signed Impressions: Service Date/Time: Wednesday, August 09, 2017 23:00 - CONCLUSION: 1. Left-sided double-J ureteral stent in place. Moderate left hydronephrosis. 4 mm calculus in the mid left ureter. Prominent left-sided perinephric stranding. Small amount of gas in the left ureter gallbladder, and collecting system may be related to recent procedure. 2. Nonobstructing right renal calculus. 3. 6 cm complex cystic right adnexal mass. Aj Gamble MD ADDENDUM: The left ureteral calculi represent fragments following intervention which are passing through ureter. Nirmal Membreno MD Chest X-Ray 08/09/17 0000 Signed Impressions: Service Date/Time: Wednesday, August 09, 2017 22:44 - CONCLUSION: No acute disease. Reynaldo Herrera MD FACR PE at Discharge GENERAL: This is a well-nourished, well-developed patient, in no apparent distress. CARDIOVASCULAR: Regular rate and regular rhythm without murmurs, gallops, or rubs. RESPIRATORY: Clear to auscultation. Breath sounds equal bilaterally. No wheezes , rales, or rhonchi. GASTROINTESTINAL: Abdomen soft, non-tender, nondistended. Normal, active bowel sounds MUSCULOSKELETAL: Extremities without clubbing, cyanosis, or edema. NEURO: Alert & Oriented x4 to person, place, time, situation. Moves all ext x4 Hospital Course 1. Sepsis: Source-UTI/Pyelonephritis. switch to po antibiotic. 2. UTI: Complicated. U/a w/ significant hematuria/bacteriuria, CT Abd/Pelvis w/ perinephric stranding- switch to po antibiotics. blood and urine cultures negative so far. 3. Hydronephrosis: S/p Lithotripsy w/ Ureteral Stent by Dr. Delgadillo 08/06/17 , CT Abd/Pelvis w/ stent in place, moderate left hydronephrosis, 4mm calculus mid left ureter. Urology consulted. 4.right adnexal mass- f/u as outpatient. Pt Condition on Discharge: Good Discharge Disposition: Discharge Home Discharge Time: <= 30 minutes Discharge Instructions DIET: Follow Instructions for: Heart Healthy Diet Activities you can perform: Regular-No Restrictions Sivan Bush MD Aug 12, 2017 09:43
--- NOTE | 2017-08-12 11:55 | MB ---
cc: Driss Delgadillo MD DATE: 08/10/2017 REASON FOR CONSULTATION: Postoperative flank pain, fever. HISTORY OF PRESENT ILLNESS: Ms. Carrera is a 57-year-old woman who on 08/06/2017 underwent an uncomplicated left ureteroscopic holmium laser lithotripsy for a 7 mm mid-left ureteral stone and an 8 mm right ureteropelvic junction stone with subsequent stent placement. She now has been complaining of subjective fever and flank pain. She was seen, I believe postop day number 1, at [facility] and was released after they could not find any significant abnormalities on her labs or imaging. She now presents to [facility] Emergency Room with worsening fever and pain. PAST MEDICAL HISTORY: Significant for microscopic hematuria, UTIs, depression, basal cell skin cancer, hypercholesterolemia, urolithiasis. PAST SURGICAL HISTORY: Significant for Mohs surgery for the basal cell carcinoma and 2 terminations as well as the recent ureteroscopic laser lithotripsy. SOCIAL HISTORY: Single. 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 She has a 40-year/pack history. Drinks 2 drinks a week. Does not exercise regularly. FAMILY HISTORY: Significant for uterine/bladder cancer in maternal grandmother as well as hypertension in the family. PREADMISSION MEDICATIONS: Alprazolam and pravastatin. PHYSICAL EXAMINATION: Please refer to the History and Physical on admission. LABORATORY DATA: Please refer to the labs. Blood and urine cultures with no growth to date. IMAGING STUDIES: The imaging shows some fullness in the left collecting system with a double-J ureteral stent in good position. There are small fragments of stones in the renal pelvis and some fragments within the ureter additionally. ASSESSMENT AND PLAN: Ms. Carrera is status post ureteroscopic and holmium laser lithotripsy for a 7 mm left mid-ureteral stone and an 8 mm left ureterovesical junction stone. This was a mostly uncomplicated procedure, although somewhat prolonged due to the volume and location of the stones. I have reviewed the CT imaging that was done at admission which is consistent with what was seen ureteroscopically. These are just residual small fragments in the kidney and ureter. Preliminarily this appears to be some type of postoperative urinary tract infection with some intractable flank pain, possibly related to the indwelling stent. Continue intravenous antibiotics until the results of the cultures and possibly switch to oral antibiotics prior to discharge. I would maintain the stent for now. We have tentatively planned to have the stent removed on 08/13/2017, in the office and will continue supportive care for her pain control, rest and hydration and possible discharge in the next 24 hours depending on how she does. I spent a total of 60 minutes with the patient, more than 50% of which was in [id number] consultation and coordination of care. MD KAROLINA Boswell/ZULLY , 11:35 AM , 11:54 AM
== END 2017-08-12 13:07 | disposition home or self-care (01) | DRG 872 ==
LOC: NEPE 21:21 → NEDA 23:55 → N07B 08-10 01:10
PROVIDERS: ADMIT Internal Medicine; ATTEND Internal Medicine
DX: A41.9 Sepsis, unspecified organism (principal); N13.6 Pyonephrosis; Z72.0 Tobacco use; E78.00 Pure hypercholesterolemia, unspecified; F32.9 Major depressive disorder, single episode, unspecified; Z80.52 Family history of malignant neoplasm of bladder; Z82.49 Family history of ischemic heart disease and other diseases of the circulatory system; R19.00 Intra-abdominal and pelvic swelling, mass and lump, unspecified site; Z87.442 Personal history of urinary calculi; Z85.828 Personal history of other malignant neoplasm of skin
CPT/HCPCS: 71045; 74176; 80053; 81001; 82550; 83605; 85025; 85610; 85730; 87040; 87086; 96365; 96375; J0696; J1170; J2270; J2405; J7030